=== PATIENT | male | born 1970 | race Caucasian/White ===

== ENCOUNTER → 2020-02-16 13:51 | Outpatient (CLI) | payer OTHER, SELFPAY ==
--- NOTE | 2020-02-16 13:56 | VDUE_ITS ---
Reason For Study: Dialysis access placement Right Arm Left Arm Right Cephalic Vein at the wrist measures Left Cephalic Vein at the wrist measures 0.37 x 0.41 cm. 0.24 x 0.29 cm. Right Cephalic Vein in the forearm measures Left Cephalic Vein in the forearm measures 0.38 x 0.44 cm. 0.38 x 0.49 cm. Rt Cephalic V branch wrist measures 0.19 x Left Cephalic Vein below antecub measures 0.27 cm 0.32 x 0.36 cm. Rt Cephalic V branch below AC measures 0.22 Left Cephalic V branch at mid forearm x 0.28 cm. measures 0.25 x 0.35 cm. Right Cephalic Vein below antecub measures Left Cephalic Vein above antecub measures 0.33 x 0.45 cm. 0.62 x 0.60 cm. Right Cephalic Vein above antecub measures Left Cephalic Vein at mid bicep measures 0.53 x 0.58 cm. 0.55 x 0.57 cm. Right Cephalic Vein mid bicep measures 0.50 Left Cephalic Vein at the shoulder measures x 0.51 cm. 0.56 x 0.60 cm. Right Cephalic Vein at the shoulder measures Basilic vein at origin measures 0.47 x 0.51 0.55 x 0.50 cm. cm. Right Basilic Vein at the origin measures Basilic vein at bicep measures 0.51 x 0.65 0.49 x 0.49 cm. cm. Right Basilic Vein mid bicep measures 0.41 x Basilic vein above antecub measures 0.55 x 0.45 cm. 0.60 cm. Right Basilic Vein above antecub measures Left Brachial Artery measures 0.45 x 0.40 cm 0.561 x 0.56 cm. with a velocity of 89.7 cm/s Rt Brachial Artery measures 0.50 x 0.50 cm Left Radial Artery measures 0.22 x 0.29 cm with a velocity of 76.0 cm/s with a velocity of 84.5 cm/s. Rt Radial Artery measures 0.22 x 0.26 cm with a velocity of 82.9 cm/s. Interpretation Summary Patent and compressible bilateral upper extremity cephalic and basilic veins with dimensions as noted. Normal diameter and flow bilateral radial and brachial arteries Ordering Physician: ANNA BEAN Referring Physician: Sandra Escobar Performed By: Dipika Braun RVT and Student ?
== END ==
PROVIDERS: PCP Nurse Practitioner Family
DX: Z01.818 Encounter for other preprocedural examination (principal); N18.5 Chronic kidney disease, stage 5
CPT/HCPCS: 93970; 93985

== ENCOUNTER 2020-03-23 05:54 | Day surgery (SDC) | payer OTHER, SELFPAY ==
[2020-03-08 08:36] VITALS: BMI 52.4
--- NOTE | 2020-03-16 13:20 | EKG12_ITS ---
Test Reason : PRE OP Blood Pressure : / mmHG Vent. Rate : 089 BPM Atrial Rate : 089 BPM P-R Int : 138 ms QRS Dur : 100 ms QT Int : 388 ms P-R-T Axes : 064 -13 067 degrees QTc Int : 472 ms Normal sinus rhythm Low voltage QRS [id number] Nonspecific ST abnormality Abnormal ECG Confirmed by ABY GONCALVES, LUZ MARINA ([id number]), legal editor ML WILEY ([id number]) on 03/22/2020 8:17:07 AM Referred By: Minh Avelar Confirmed By:LUZ MARINA BADILLO MD
[2020-03-16 15:28] LABS: Hematocrit 27.2 % (40-54); Hemoglobin 8.7 g/dL (13.0-16.5); Mean Corpuscular Hgb 27.4 pg (27.0-32.0); Mean Corpuscular Volume 85.8 fL (80-94); Mean Platelet Vol. 9.3 fl (6.2-12.0); Platelet Count 172 K/mm3 (150-450); RBC Distribution Width CV 16.2 % (11.6-14.6); RBC Distribution Width SD 50.8 fl (35.1-43.9); Red Blood Count 3.17 M/mm3 (4.6-6.2); White Blood Count 6.1 K/mm3 (4.4-11.0)
[2020-03-16 15:50] LABS: Anion Gap 9 (5-15); BUN 80 mg/dL (7-18); Calcium,Total 8.1 mg/dL (8.5-10.1); Chloride 109 mmol/L (98-107); Creatinine, Serum 5.01 mg/dL (0.70-1.30); EST Glomerular Filtration Rate 13 mL/min (>60); Est Glom Filt Rate - Afr Amer 16 mL/min (>60); Glucose 145 mg/dL (74-106); Potassium 4.1 mmol/L (3.5-5.1); Sodium Level 138 mmol/L (136-145)
[2020-03-23] VITALS (7 sets, daily range): BP systolic 126–164; BP diastolic 54–78; PULSE 63–74; RESP 16–20; TEMP 36.2–37.1; O2SAT 92–100; BMI 52.4
--- NOTE | 2020-03-23 06:23 | PCM.HP.BLA ---
Problem List (1) Chronic renal failure, stage 4 (severe) Status: Chronic History and Physical Date of Admission: 03/23/20 Intake Visit Reasons: Fistula Consult Allergies gemfibrozil Adverse Reaction (Mild, Verified 03/08/20 08:37) Diarrhea Medications carvedilol 25 mg tablet 25 mg PO BID 03/08/20 [History Confirmed 03/08/20] cyanocobalamin (vitamin B-12) 100 mcg tablet 100 mcg PO DAILY 03/08/20 [History Confirmed 03/08/20] darbepoetin aida in polysorbat 300 mcg/0.6 mL in polysorbate injection syringe 300 mcg SC Q2W 03/08/20 [History Confirmed 03/08/20] doxazosin 4 mg tablet 4 mg PO DAILY 03/08/20 [History Confirmed 03/08/20] ergocalciferol (vitamin D2) 50,000 unit tablet 50,000 unit PO QMONTH tab 03/08/20 [History] folic acid 1 mg tablet 1 mg PO DAILY 03/08/20 [History Confirmed 03/08/20] gabapentin 300 mg capsule 300 mg PO BID 03/08/20 [History Confirmed 03/08/20] hydroxyzine HCl 10 mg tablet 10 mg PO QHS 03/08/20 [History Confirmed 03/08/20] insulin aspart U-100 100 unit/mL (3 mL) subcutaneous pen 22 unit SC TID ml 03/08/20 [History Confirmed 03/08/20] sitagliptin 50 mg tablet 50 mg PO DAILY 03/08/20 [History Confirmed 03/08/20] sodium bicarbonate 650 mg tablet 650 mg PO TID-QID PRN 03/08/20 [History Confirmed 03/08/20] [facility] Medical History (Updated 03/08/20 @ 08:[address] Minh Avelar MD) Chronic renal failure, stage 4 (severe) (Chronic) Diabetes (Acute) Kidney failure (Acute) Status post amputation of toe of left foot (Acute) HTN (hypertension) (Chronic) Surgical History (Updated 03/08/20 @ 08:36 by Indira Call) S/P right heart catheterization (Acute) Status post amputation of toe of right foot (Acute) Status post hernia repair (Acute) Social History (Updated 03/08/20 @ 09:[address] Minh Avelar MD) Smoking Status: Current some day smoker alcohol intake: never HPI HPI HPI: SHASHANK GARCIA, is a 49 M who presents to the office today for surgical consultation regarding creation of an arteriovenous hemodialysis fistula. The patient is referred by the [facility] and a written copy my surgical consult recommendations will return to them. The patient states that he has been notably overweight his entire life. Claims at one point he was 447 pounds. He is type II diabetic and this been so for the last 10 days years. He has had progressive renal insufficiency. He states that he has had multiple staph infections. He currently has had amputations of toes of his left foot. He works as control equipment electrician. He currently states that his left foot is healed. He is in a protective boot. He does note that he gets dyspneic quite easily. As noted below on February 16, 2020 had bilateral upper extremity duplex vein mapping. He is mostly right arm dominant. Claims he had an injury to the left hand remotely and now that his left hand is really much less useful. He has minimal tailor apprentice strength. Lack of coordination. He denies any coolness. ASD with pulmonary HTN Morbid obesity, BMI 52.4 [facility] [address] [place] [address] Saphenous Vein Mapping, Bilat 02/16/20 1403 MR#: [id number] Name: SHASHANK GARCIA [facility] #:[id number] : 1970 49From: Minh Avelar MD Attending Dr: Becca BEANus: REG I Ordering Dr: Irene BEANte: 02/16/20 [facility] Reason For Study: Dialysis access placement Right Arm Left Arm Right Cephalic Vein at the wrist measures Left Cephalic Vein at the wrist measures 0.37 x 0.41 cm. 0.24 x 0.29 cm. Right Cephalic Vein in the forearm measures Left Cephalic Vein in the forearm measures 0.38 x 0.44 cm. 0.38 x 0.49 cm. Rt Cephalic V branch wrist measures 0.19 x Left Cephalic Vein below antecub measures 0.27 cm 0.32 x 0.36 cm. Rt Cephalic V branch below AC measures 0.22 Left Cephalic V branch at mid forearm x 0.28 cm. measures 0.25 x 0.35 cm. Right Cephalic Vein below antecub measures Left Cephalic Vein above antecub measures 0.33 x 0.45 cm. 0.62 x 0.60 cm. Right Cephalic Vein above antecub measures Left Cephalic Vein at mid bicep measures 0.53 x 0.58 cm. 0.55 x 0.57 cm. Right Cephalic Vein mid bicep measures 0.50 Left Cephalic Vein at the shoulder measures x 0.51 cm. 0.56 x 0.60 cm. Right Cephalic Vein at the shoulder measures Basilic vein at origin measures 0.47 x 0.51 0.55 x 0.50 cm. cm. Right Basilic Vein at the origin measures Basilic vein at bicep measures 0.51 x 0.65 0.49 x 0.49 cm. cm. Right Basilic Vein mid bicep measures 0.41 x Basilic vein above antecub measures 0.55 x 0.45 cm. 0.60 cm. Right Basilic Vein above antecub measures Left Brachial Artery measures 0.45 x 0.40 cm 0.561 x 0.56 cm. with a velocity of 89.7 cm/s Rt Brachial Artery measures 0.50 x 0.50 cm Left Radial Artery measures 0.22 x 0.29 cm with a velocity of 76.0 cm/s with a velocity of 84.5 cm/s. Rt Radial Artery measures 0.22 x 0.26 cm with a velocity of 82.9 cm/s. Interpretation Summary Patent and compressible bilateral upper extremity cephalic and basilic veins with dimensions as noted. Normal diameter and flow bilateral radial and brachial arteries Ordering Physician: TAVON BEAN Referring Physician: Sandra Escobar Performed By: Dipika Braun RVT and Student ? 02/16/20 1610 Date Minh Avelar MD HPI HPI HPI: SHASHANK GARCIA, is a 49 M who presents to the office today for Exam Const General: cooperative, comfortable, no acute distress Nutritional Appearance: obese morbidly obese Orientation: alert, awake, oriented x3 HENMT Head: normal to inspection Eyes General: appearance normal, both eyes and all related structures Neck Other: Significant soft tissue defect and scarring left posterior neck Resp Auscultation: clear to auscultation bilaterally Other: Poor respiratory excursion Cardio Rate: regular rate Rhythm: regular rhythm GI Other: Patient notably overweight, sitting in a scooter chair, I did not attempt to get him onto an exam table Skin Other: Erythema bilateral lower extremities with soft tissue swelling noted Neuro Cognition: normal cognition Extrem General: pedal edema Other: Left radial pulse is 2+. I inspected the left forearm cephalic vein it appeared to be patent compressible and of adequate diameter Psych Affect: normal affect Assessment & Plan Problems 1. Chronic renal failure, stage 4 (severe) N18.4 Plan 49-year-old gentleman with stage IV chronic renal sufficiency. He is cared for at the [facility]. He states that they want to initiate dialysis as soon as possible. Because of his history of multiple staph infections he is hesitant to allow any type of prosthetic device i.e. catheter. I propose for him a left forearm transposed cephalic vein radial artery arteriovenous fistula creation. He is aware of the technique, benefit, risk and alternatives. Because of his multiple staph infections I recommend that we obtain MRSA screening preoperatively. If that is positive then I would recommend vancomycin be administered preoperatively. He has had an opportunity to ask and have questions answered. He is aware that a will take 2 to 3 months likely to get a functioning fistula. We will schedule and proceed at his discretion and try to expedite his care. He is aware of COVID-19. He is aware that the [facility] still reporting a containable incidence. He is aware that this is outpatient procedure. Unfortunately if his renal failure progresses quickly then he will require dialysis catheters and as noted he has concerns that this will place him at increased infection risk. I appreciate the opportunity of assisting with his surgical care Copy: [facility], Dr Tavon Avelar M.D., F.A.C.S. Coding Level of Care Code 48359 Diagnoses Chronic renal failure, stage 4 (severe) N18.4 I have re-examined the patient. There are no clinical changes since date of exam. Procedure Criteria Procedure Type: Elective COVID Risk Discussion: The surgeon/proceduralist and patient have discussed in detail the risk of exposure to and/or potential harm posed by the COVID-19 virus with having a surgery/procedure at this time versus the risk of delaying the surgery/procedure. It is not possible to know either the risk of delaying the surgery or procedure or chance of getting an infection with perfect accuracy, but a joint decision was made between the patient and the surgeon/proceduralist to proceed at this time with the scheduled surgery/procedure as indicated on the consent form.
--- NOTE | 2020-03-23 06:24 | DCINST_ITS ---
Discharge Diet: Renal Diet Discharge Activity: May Not Drive - for 2-3 days or while taking narcotic pain medications., May Take a Tub Bath - in 5 days. Lifting Restrictions: 5 pounds Keep extremity elevated above heart level: - - Keep arm elevated above the heart level for 3 days. Additional Activity Instructions:: Exercise hand vigorously with a stress ball. Call your doctor if your incision/area has: Continuous Slow Oozing, Sudden Increased Bleeding - apply pressure and call your doctor., Increased Pain/ Swelling, Increased Redness, Foul Smelling Discharge Call your doctor if you observe: Fever of 101 or Higher Suture Line Care: Avoid Pulling/Pushing, Avoid Pinching/Bending Cleanse incision/area with: Keep Dressing Clean & Dry Additional Dressing/Incision Instructions:: You may remove the Baljeet wrap dressing in 2 days. Leave the Steri-Strips in place for an additional 1 week. You may shower starting on Thursday as long as the incision is clean and dry and without drainage Allergies/Adverse Reactions: Allergies gemfibrozil Adverse Reaction (Mild, Verified 03/16/20 10:11) Diarrhea Medications to take at Discharge carvedilol 25 mg tablet 25 mg PO BID 03/08/20 cyanocobalamin (vitamin B-12) 100 mcg tablet 100 mcg PO DAILY 03/08/20 darbepoetin aida in polysorbat 300 mcg/0.6 mL in polysorbate injection syringe 300 mcg SC Q2W 03/08/20 doxazosin 4 mg tablet 4 mg PO DAILY 03/08/20 ergocalciferol (vitamin D2) 50,000 unit tablet 50,000 unit PO QMONTH tab 03/08/20 folic acid 1 mg tablet 1 mg PO DAILY 03/08/20 gabapentin 300 mg capsule 300 mg PO BID PRN 03/08/20 insulin aspart U-100 100 unit/mL (3 mL) subcutaneous pen 12 unit SC BID ml 03/08/20 sitagliptin 50 mg tablet 50 mg PO DAILY 03/08/20 sodium bicarbonate 650 mg tablet 650 mg PO BID 03/08/20 Primary Care Physician: Sandra Escobar NP, [facility] [employer]-C [Primary Care Provider] - Test Results: Test results from this visit will be discussed in further detail at your follow- up appointment, if applicable. Please Follow Up With: Minh Avelar MD - [phone] When: Call to make an appointment for suture removal and follow up in 10 days
[2020-03-23] MEDS: Lactated Ringers 1,000 ML 100 ML IV (06:48)
[2020-03-23 07:01] LABS: Bedside Glucose 108 mg/dL (70-110)
[2020-03-23] MEDS: Heparin Injection (Vial) 5,000 UNIT/ML VIAL 5000 UNIT (07:30)
[2020-03-23] MEDS: Lidocaine 1% (30 ml sdv) 30 ML Vial (09:00)
[2020-03-23] MEDS: Bupivacaine Mpf 0.5% 30 ML VIAL (09:00)
--- NOTE | 2020-03-23 09:27 | PCM.OPRPT ---
Problem List (1) Chronic renal failure, stage 4 (severe) Status: Chronic Report of Operation Date of Procedure: 03/23/20 Pre-Operative Diagnosis: Stage IV chronic renal insufficiency Post-Operative Diagnosis: Same Surgery/Procedure Performed:: Transposition left forearm cephalic vein to radial artery arteriovenous hemodialysis fistula creation Description of Surgical Findings:: Timeout and informed consent was obtained. 49-year-old gentleman was taken to the operating placed on the table underwent general anesthesia. Ancef 2 g were given intravenously. The left upper extremity was sterilely prepped and draped. Throughout the procedure 1% lidocaine mixed 50-50 with 0.5% Marcaine was used as a local anesthetic. A total of 45 cc was used. Ultrasound was used to map the course of the cephalic vein. Local was instilled. A longitudinal incision was made up the left forearm. The cephalic vein was completely dissected free. Side branches were secured with 4-0 Vicryl ligatures and hemoclips were indicated. The bifurcation of the cephalic vein and basilic vein occurred distal to the antecubital space. I elected to keep both outflow tracts intact. Dissected down to the wrist. This was out of place at bifurcation at that would make a nice anastomosis. I then made a separate longitudinal incision directly over the radial artery sharp and blunt dissection was used to identify this. I then tediously dissected the radial artery free. Was rather severely calcific. I was able to get it mobilized. Side branches secured with hemoclips. And then the vein was ligated distally with 3-0 Vicryl. It was spatulated at a branch point. I then placed a tunneler medial to the harvest incision from the wrist to the antecubital area. I then carefully tunneled the ink marked vein to assure no twisting through the superficial tunnel. Patient then received 12,000 units of heparin weightbase. Peripheral vascular clamps were placed on the radial artery 11 blade was used to make an arteriotomy with extended with Hale scissors. The vein had been nicely spatulated. A end-to-side anastomosis was created with a running 7-0 Prolene. Prior to completion I used a 2.5 Pb dilator to assure good arterial inflow. I then completed the anastomosis without additional clamping. Several interrupted 7-0 Vicryl sutures were required for hemostasis. There was excellent flow in the fistula at the completion with good positional lie. No undue tension. The artery had been partially mobilized as well. The patient received 20 mg of protamine as reversal agent. The hand appeared to be warm and viable. The wounds were closed with interrupted subdermal 3-0 Vicryl. Skin edges approximated running septic or 4-0 Monocryl. Steri-Strips Telfa soft roll Baljeet wrap applied. Sponge and instrument and needle counts were reported to the surgeon to be correct. Specimens none. Drains none. Blood loss 50 cc Minh Avelar M.D., F.A.C.S. Anesthesiologist: Wally Valdez
[2020-03-23 10:45] LABS: Bedside Glucose 110 mg/dL (70-110)
== END 2020-03-23 13:20 | disposition home or self-care (01) ==
LOC: SDC 05:54 → AC 05:54
PROVIDERS: PCP Nurse Practitioner Family; Referring Provider Surgery; Visit Provider Surgery
PROC: (CPT 36821; principal; 2020-03-23 07:15)
DX: I12.9 Hypertensive chronic kidney disease with stage 1 through stage 4 chronic kidney disease, or unspecified chronic kidney disease (principal); N18.4 Chronic kidney disease, stage 4 (severe); E11.22 Type 2 diabetes mellitus with diabetic chronic kidney disease; I27.20 Pulmonary hypertension, unspecified; Q21.1 Atrial septal defect; G47.30 Sleep apnea, unspecified; F17.200 Nicotine dependence, unspecified, uncomplicated; E66.01 Morbid (severe) obesity due to excess calories; Z68.43 Body mass index [BMI] 50.0-59.9, adult; Z99.2 Dependence on renal dialysis; Z79.4 Long term (current) use of insulin; Z79.899 Other long term (current) drug therapy; Z20.828 Contact with and (suspected) exposure to other viral communicable diseases
CPT/HCPCS: 01844; 36821; 36415; 80048; 82962; 85027; 87081; 87426; 93005; C9803; J7120

== ENCOUNTER 2020-04-26 10:31 | Day surgery (SDC) | payer OTHER, SELFPAY ==
[2020-04-24 09:42] VITALS: BMI 53.2
[2020-04-25 10:38] VITALS: BMI 53.2
--- NOTE | 2020-04-26 10:40 | HP.PCM_ITS ---
Problem List (1) Problem with dialysis access Status: Acute Qualifiers: Encounter type: initial encounter Qualified Code(s): T82.898A - Other specified complication of vascular prosthetic devices, implants and grafts, initial encounter History and Physical Date of Admission: 04/26/20 Intake Visit Reasons: TWO WEEK F/U FISTULA Chief Complaint: Post op transposition A-V Fistula left forearm 03/23/20 Allergies gemfibrozil Adverse Reaction (Mild, Verified 04/24/20 09:28) Diarrhea Medications carvedilol 25 mg tablet 25 mg PO BID 03/08/20 [History Confirmed 04/24/20] cyanocobalamin (vitamin B-12) 100 mcg tablet 100 mcg PO DAILY 03/08/20 [History Confirmed 04/24/20] darbepoetin aida in polysorbat 300 mcg/0.6 mL in polysorbate injection syringe 300 mcg SC Q2W 03/08/20 [History Confirmed 04/24/20] doxazosin 4 mg tablet 4 mg PO DAILY 03/08/20 [History Confirmed 04/24/20] ergocalciferol (vitamin D2) 50,000 unit tablet 50,000 unit PO QMONTH tab [History Confirmed 04/24/20] folic acid 1 mg tablet 1 mg PO DAILY 03/08/20 [History Confirmed 04/24/20] gabapentin 300 mg capsule 300 mg PO BID PRN 03/08/20 [History Confirmed 04/24/20] insulin aspart U-100 100 unit/mL (3 mL) subcutaneous pen 12 unit SC BID ml 03/08/20 [History Confirmed 04/24/20] sitagliptin 50 mg tablet 50 mg PO DAILY 03/08/20 [History Confirmed 04/24/20] sodium bicarbonate 650 mg tablet 650 mg PO BID 03/08/20 [History Confirmed 04/24/20] [facility] Medical History Chronic renal failure, stage 4 (severe) (Chronic) Diabetes (Acute) Kidney failure (Acute) Status post amputation of toe of left foot (Acute) HTN (hypertension) (Chronic) Surgical History S/P right heart catheterization (Acute) Status post amputation of toe of right foot (Acute) Status post hernia repair (Acute) history transposition A-V Fistula left forearm (Acute ~03/23/20) Social History (Updated 04/24/20 @ 13:25 by Gisselle BAEZA, PALucianoC) Smoking Status: Current some day smoker alcohol intake: never HPI HPI HPI: SHASHANK GARCIA, is a 49 M who presents to the office today for HPI HPI Surgical H&P: Yes HPI: SHASHANK GARCIA, is a 49 M who presents to the office today for follow-up of left forearm AV fistula creation by Dr. Avelar on 03/23/20. Patient notes discomfort along the thumb up into the radial aspect of the arm. He notes this is not all of the time. He denies numbness/tingling. He does have limited range of motion of the left hand which was present prior to the fistula creation. Patient is not currently on dialysis, however he notes having more symptoms in regards to renal failure. His scrape gatherer has not stated he needs to go dialysis. Patient has very high anxiety and would only allow me to discuss swallow details about the procedure. He is not currently maintained on anticoagulation. Patient is scooter bound however he is able to transfer with assistance. ROS General General: Yes fatigue; no weight change, appetite, colon cancer, breast cancer or weakness HEENT HEENT: No difficulty swallowing, eye injury, eye surgery, swollen glands or hoarseness Endo Endocrine: Yes diabetes mellitus; no thyroid disease, thyroid cancer, Hair loss, heat intolerance or cold intolerance Skin Skin: No rash or changing moles Breast Breast: No left breast lump, right breast lump, nipple discharge, breast pain, abnormal mammogram, abnormal US or breast enlargement Musc Musculoskeletal: Yes gout; no back problems, arthritis, rheumatoid arthritis or joint pain Cardio Cardiovascular: Yes murmur, heart disease, atrial fibrillation, high blood pressure and heart attack; no pacemaker, heart stent, palpitations, shortness of breat with exertion or chest pain Psych Psychiatric: No depression, anxiety or hearing voices Resp Respiratory: Yes shortness of breath, Yes sleep apnea, No cough, No COPD, No asthma, No emphysema, No wheezing Gastro Gastrointestinal: No abdominal pain, No nausea or vomiting, Yes diarrhea, Yes constipation, No blood in stool, No acid reflux, No hemorrhoids, No ulcers, No gallbladder problem, No black,tarry stools William Hematologic: No blood thinners, No blood disorders, No bleeding, Yes anemia, No blood clots Neuro Neurologic: No system reviewed and no additional complaints, except as docu, No as per HPI, No abnormal walking, No abnormal hearing, No abnormal movements, No abnormal speech, No behavioral changes, No burning sensations, No confusion, No seizure-like activity, No unsteadiness, No dizziness, No localized weakness, No frequent falls, No headache(s), No lack of coordination, No loss of vision, No memory loss, Yes numbness, No other visual disturbances, No radiating pain, No restless legs, No sensory deficit, No fainting, Yes tingling, No tremor(s), No weakness, No other Exam Const General: cooperative, comfortable, no acute distress HENMT Head: normal to inspection Eyes General: appearance normal, both eyes and all related structures Neck Neck: normal visual inspection Neck mass: No Chest Breast Palpation: No nipple discharge Resp Effort & Inspection: normal respiratory effort Auscultation: clear to auscultation bilaterally Cardio Rate: regular rate Rhythm: regular rhythm Heart Sounds: murmur GI Inspection: normal to inspection, obesity Palpation: soft Skin General: no rashes or lesions noted Neuro General: no focal motor deficits, CN's II-XI intact bilaterally Extrem General: normal to inspection Other: Left forearm AV fistula- good pulse, diminished bruit and thrill throughout. Bruit is a whisper near the anastomotic incision and non-audible extending superiorly. Incisions have healed nicely. Psych Appearance: grossly normal Affect: normal affect Assessment & Plan Problems 1. Chronic renal failure, stage 4 (severe) N18.4 2. Problem with dialysis access, initial encounter T82.397P Plan Dr. Avelar will plan to perform a left forearm fistulogram with carbon dioxide. Procedure details, risks and benefits have been explained. Patient has had the opportunity to ask and have questions answered. Patient is not currently on dialysis, so Dr. Avelar will utilize carbon dioxide. Patient has very high anxiety. I was able to explain the procedure however he had to stop me several times due to me giving to much detail. Coding Level of Care Code Global Post Op Diagnoses Chronic renal failure, stage 4 (severe) N18.4 Problem with dialysis access, initial encounter T84.041T ??Encounter type: initial encounter I have re-examined the patient. There are no clinical changes since date of exam. Procedure Criteria Procedure Type: Elective COVID Risk Discussion: The surgeon/proceduralist and patient have discussed in detail the risk of exposure to and/or potential harm posed by the COVID-19 virus with having a surgery/procedure at this time versus the risk of delaying the surgery/procedure. It is not possible to know either the risk of delaying the surgery or procedure or chance of getting an infection with perfect accuracy, but a joint decision was made between the patient and the surgeon/proceduralist to proceed at this time with the scheduled surgery/procedure as indicated on the consent form.
[2020-04-26 10:48] LABS: Hematocrit 27.1 % (40-54); Hemoglobin 8.6 g/dL (13.0-16.5); Mean Corp Hgb Conc 31.7 g/dL (32-36); Mean Corpuscular Hgb 27.2 pg (27.0-32.0); Mean Corpuscular Volume 85.8 fL (80-94); Mean Platelet Vol. 8.8 fl (6.2-12.0); Platelet Count 160 K/mm3 (150-450); RBC Distribution Width CV 15.5 % (11.6-14.6); RBC Distribution Width SD 49.2 fl (35.1-43.9); Red Blood Count 3.16 M/mm3 (4.6-6.2); White Blood Count 4.8 K/mm3 (4.4-11.0)
[2020-04-26 10:59] LABS: Anion Gap 7 (5-15); BUN 88 mg/dL (7-18); BUN/Creat Ratio 19.2 RATIO (10-20); Chloride 112 mmol/L (98-107); Creatinine, Serum 4.59 mg/dL (0.70-1.30); EST Glomerular Filtration Rate 14 mL/min (>60); Est Glom Filt Rate - Afr Amer 17 mL/min (>60); Glucose 147 mg/dL (74-106); Potassium 4.7 mmol/L (3.5-5.1); Sodium Level 139 mmol/L (136-145)
--- NOTE | 2020-04-26 12:52 | OP.PCM_ITS ---
Problem List (1) Problem with dialysis access Status: Acute Qualifiers: Encounter type: initial encounter Qualified Code(s): T82.898A - Other specified complication of vascular prosthetic devices, implants and grafts, initial encounter Report of Operation Date of Procedure: 04/26/20 Pre-Operative Diagnosis: Diminished flow transposed left forearm cephalic vein to radial artery arteriovenous hemodialysis fistula Post-Operative Diagnosis: Inability to cannulate radial artery at fistula anastomosis Surgery/Procedure Performed:: Left forearm carbon dioxide fistulogram with attempted crossing of the arterial anastomosis Description of Surgical Findings:: Timeout and informed consent was obtained. 55-year-old gentleman was taken to the special procedures lab placed upon the table. He is morbidly obese. He has trouble breathing lying supine. He received a half a milligram Versed is intravenous sedation. He received 4 mg of Zofran IV because of complaint of nausea. Pillows were placed beneath his legs to assist with comfort. Ultrasound was performed in the proximal left volar forearm. Under ultrasound guidance 2 different areas were accessed with a micropuncture needle. Could not get the wire to advance at the more proximal condition closer to the antecubital space so I advanced slightly more distally. 2% lidocaine was instilled micropuncture needle inserted retrograde with low micropuncture wire inserted 6 Sammarinese short sheath dilator was inserted. Then I tried using a 4 Sammarinese angled glide cath and an 03 5 inch Glidewire. I exchanged out to a 4 Sammarinese IM catheter. I additionally be used a police pilot 150 wire. No matter what maneuver I was not able to gain access into the radial artery at the anastomosis. Could not identify it. Carbon dioxide fistulogram of the forearm demonstrated adequate forearm vein and seemingly adequate flow to the antecubital space. I then performed ultrasound inspection of the anastomosis and it appears to be patent and there appears to be good flow not clear as to why could not get access. This point I aborted the procedure. We will follow the patient clinically. If he perhaps continues to fail to demonstrate maturation then I would consider antegrade access through the left antecubital brachial artery into the radial artery to try to investigate the fistula in that regard. The sheath dilator was removed U suture 4-0 nylon was placed. He tolerated the procedure adequately. There were no apparent complications. Findings include a limited forearm fistulogram demonstrating a patent transposed cephalic vein to radial artery although the arterial anastomosis could not be visualized and could not be cannulated. Minh Avelar M.D., F.A.C.S. Type of Anesthesia:: IV Sedation, Local
== END 2020-04-26 14:00 | disposition home or self-care (01) ==
PROVIDERS: PCP Nurse Practitioner Family; Referring Provider Surgery; Visit Provider Surgery
DX: T82.898A Other specified complication of vascular prosthetic devices, implants and grafts, initial encounter (principal); I12.9 Hypertensive chronic kidney disease with stage 1 through stage 4 chronic kidney disease, or unspecified chronic kidney disease; E11.22 Type 2 diabetes mellitus with diabetic chronic kidney disease; N18.4 Chronic kidney disease, stage 4 (severe); E66.01 Morbid (severe) obesity due to excess calories; Z79.4 Long term (current) use of insulin; Z79.899 Other long term (current) drug therapy
CPT/HCPCS: 36415; 36901; 76937; 80048; 85027; 99152; 99153; Q9967; C1769; J2405

== ENCOUNTER → 2020-05-08 12:55 | Outpatient (CLI) | payer OTHER, SELFPAY ==
[2020-04-25 10:38] VITALS: BMI 53.2
--- NOTE | 2020-05-08 12:56 | AVDS_ITS ---
Reason For Study: Complication with vascular device LEFT Inflow, Radial artery, 345.1/162.2 cm/sec. Inflow, Radial artery, 342.7/ml/min. Prox anastomosis, 387.3/786.3 cm/sec. Prox anastomosis, 320.5 ml/min. Prox graft, 534.1/257.3 cm/sec. Prox graft, 1768 ml/min. Mid graft, 123.4/53.4 cm/sec. Mid graft, 374.4 ml/min. Distal graft, 74.1/37.8 cm/sec. Distal graft, 364.9 ml/min. Outflow, CephalicV, 97.4/40.4 cm/sec. Outflow, CephalicV, 392.6 ml/min. Interpretation Summary Cephalic vein to radial artery anastomosis 0.27 cm in diameter. Volume flow located throughout the left radial artery is noted to be in the mid 300s. An isolated proximal fistula volume flow elevated at 1768 mm/min but in the mid fistula it is 374 mm/min and in the distal fistula 364 mm/min [place] fistula flow would be 600 mm/min Ordering Physician: Minh Avelar Referring Physician: Sandra Escobar Performed By: Dipika Braun RVT
== END ==
PROVIDERS: PCP Nurse Practitioner Family; Referring Provider Surgery; Visit Provider Surgery
DX: T82.898A Other specified complication of vascular prosthetic devices, implants and grafts, initial encounter (principal)
CPT/HCPCS: 93990

== ENCOUNTER 2020-05-22 09:08 | Day surgery (SDC) | payer OTHER, SELFPAY ==
[2020-05-15 13:01] VITALS: BMI 53.2
[2020-05-15 15:09] LABS: Absolute Lymphocyte Count 0.94 X10^3/uL (0.83-4.51); Basophil# 0.02 X10^3/uL; Basophil% 0.4 % (0-1); Eosinophils% 1.8 % (0-5); Hematocrit 27.4 % (40-54); Hemoglobin 8.6 g/dL (13.0-16.5); Lymphocyte # 0.94 X10^3/ul (4.0); Lymphocyte % 17.3 % (19-41); Mean Corp Hgb Conc 31.4 g/dL (32-36); Mean Corpuscular Hgb 26.5 pg (27.0-32.0); Mean Corpuscular Volume 84.3 fL (80-94); Mean Platelet Vol. 9.1 fl (6.2-12.0); Monocyte% 5.5 % (0-10); NRBC Flagged by Analyzer 0 % (0-5); Neutrophil # 4.03 X10^3/uL (2.7-7.7); Neutrophil % 74.4 % (47-70); Platelet Count 173 K/mm3 (150-450); RBC Distribution Width CV 15.2 % (11.6-14.6); Red Blood Count 3.25 M/mm3 (4.6-6.2); White Blood Count 5.4 K/mm3 (4.4-11.0)
[2020-05-15 15:55] LABS: Anion Gap 7 (5-15); BUN 103 mg/dL (7-18); BUN/Creat Ratio 21.4 RATIO (10-20); Calcium,Total 8.5 mg/dL (8.5-10.1); Chloride 107 mmol/L (98-107); Creatinine, Serum 4.82 mg/dL (0.70-1.30); EST Glomerular Filtration Rate 14 mL/min (>60); Est Glom Filt Rate - Afr Amer 16 mL/min (>60); Glucose 135 mg/dL (74-106); Potassium 4.8 mmol/L (3.5-5.1); Sodium Level 136 mmol/L (136-145)
[2020-05-21 08:46] VITALS: BMI 53.2
--- NOTE | 2020-05-22 09:18 | PCM.HP.BLA ---
Problem List (1) Problem with dialysis access Status: Acute Qualifiers: Encounter type: subsequent encounter Qualified Code(s): T82.898D - Other specified complication of vascular prosthetic devices, implants and grafts, subsequent encounter History and Physical Date of Admission: 05/22/20 Intake Visit Reasons: discuss US/ surgery Chief Complaint: recheck fistula Brainer Required: No Is patient in pain?: No Allergies gemfibrozil Adverse Reaction (Mild, Verified 05/15/20 12:38) Diarrhea Medications carvedilol 25 mg tablet 25 mg PO BID 03/08/20 [History Confirmed 05/15/20] cyanocobalamin (vitamin B-12) 100 mcg tablet 100 mcg PO DAILY 03/08/20 [History Confirmed 05/15/20] darbepoetin aida in polysorbat 300 mcg/0.6 mL in polysorbate injection syringe 300 mcg SC Q2W 03/08/20 [History Confirmed 05/15/20] doxazosin 4 mg tablet 4 mg PO DAILY 03/08/20 [History Confirmed 05/15/20] ergocalciferol (vitamin D2) 50,000 unit tablet 50,000 unit PO QMONTH tab 03/08/20 [History Confirmed 05/15/20] folic acid 1 mg tablet 1 mg PO DAILY 03/08/20 [History Confirmed 05/15/20] gabapentin 300 mg capsule 300 mg PO BID PRN 03/08/20 [History Confirmed 05/15/20] insulin aspart U-100 100 unit/mL (3 mL) subcutaneous pen 12 unit SC BID ml 03/08/20 [History Confirmed 05/15/20] sitagliptin 50 mg tablet 50 mg PO DAILY 03/08/20 [History Confirmed 05/15/20] sodium bicarbonate 650 mg tablet 650 mg PO BID 03/08/20 [History Confirmed 05/15/20] [facility] Medical History Chronic renal failure, stage 4 (severe) (Chronic) Diabetes (Acute) Kidney failure (Acute) Status post amputation of toe of left foot (Acute) HTN (hypertension) (Chronic) Surgical History S/P right heart catheterization (Acute) Status post amputation of toe of right foot (Acute) Status post hernia repair (Acute) history transposition A-V Fistula left forearm (Acute ~03/23/20) Social History (Updated 05/15/20 @ 15:[address] Minh Avelar MD) Smoking Status: Current some day smoker alcohol intake: never HPI HPI HPI: SHASHANK GARCIA, is a 49 M who presents to the office today for surgical follow-up of transposed left forearm cephalic vein radial artery AV fistula. Did not appear to be maturing well. It was created for him on 03/23/2020. Then on 04/26/2020 and attempted a fistulogram. I accessed the venous portion of the fistula but could not gain access to the radial artery. Subsequently obtain duplex imaging of his fistula as noted below. The fistula volume flow is less than ideal. Report of Operation Date of Procedure: 04/26/20 Pre-Operative Diagnosis: Diminished flow transposed left forearm cephalic vein to radial artery arteriovenous hemodialysis fistula Post-Operative Diagnosis: Inability to cannulate radial artery at fistula anastomosis Surgery/Procedure Performed:: Left forearm carbon dioxide fistulogram with attempted crossing of the arterial anastomosis [facility] [address] [place] [address] AV Fistula/Dialysis Graft Scan 05/08/20 1303 MR#: [id number] Name: SHASHANK GARCIA [facility] #:[id number] : 1970 49From: Minh Avelar MD Attending Dr: Dr. Minh Avelar, MDStatus: REG CLI Ordering Dr: Minh Avelar MDDate: 05/08/20 [facility]: Reason For Study: Complication with vascular device LEFT Inflow, Radial artery, 345.1/162.2 cm/sec. Inflow, Radial artery, 342.7/ml/min. Prox anastomosis, 387.3/786.3 cm/sec. Prox anastomosis, 320.5 ml/min. Prox graft, 534.1/257.3 cm/sec. Prox graft, 1768 ml/min. Mid graft, 123.4/53.4 cm/sec. Mid graft, 374.4 ml/min. Distal graft, 74.1/37.8 cm/sec. Distal graft, 364.9 ml/min. Outflow, CephalicV, 97.4/40.4 cm/sec. Outflow, CephalicV, 392.6 ml/min. Interpretation Summary Cephalic vein to radial artery anastomosis 0.27 cm in diameter. Volume flow located throughout the left radial artery is noted to be in the mid 300s. An isolated proximal fistula volume flow elevated at 1768 mm/min but in the mid fistula it is 374 mm/min and in the distal fistula 364 mm/min [place] fistula flow would be 600 mm/min Ordering Physician: Minh Avelar Referring Physician: Sandra Escobar Performed By: Dipika Braun RVT 05/08/20 1442 Date Minh Avelar MD HPI HPI HPI: SHASHANK GARCIA, is a 49 M who presents to the office today for ROS General General: Yes fatigue; no weight change, appetite, colon cancer, breast cancer or weakness HEENT HEENT: No difficulty swallowing, eye injury, eye surgery, swollen glands or hoarseness Endo Endocrine: Yes diabetes mellitus; no thyroid disease, thyroid cancer, Hair loss, heat intolerance or cold intolerance Skin Skin: No rash or changing moles Breast Breast: No left breast lump, right breast lump, nipple discharge, breast pain, abnormal mammogram, abnormal US or breast enlargement Musc Musculoskeletal: Yes gout; no back problems, arthritis, rheumatoid arthritis or joint pain Cardio Cardiovascular: Yes murmur, heart disease, atrial fibrillation, high blood pressure and heart attack; no pacemaker, heart stent, palpitations, shortness of breat with exertion or chest pain Psych Psychiatric: No depression, anxiety or hearing voices Resp Respiratory: Yes shortness of breath, Yes sleep apnea, No cough, No COPD, No asthma, No emphysema, No wheezing Gastro Gastrointestinal: No abdominal pain, No nausea or vomiting, Yes diarrhea, Yes constipation, No blood in stool, No acid reflux, No hemorrhoids, No ulcers, No gallbladder problem, No black,tarry stools William Hematologic: No blood thinners, No blood disorders, No bleeding, Yes anemia, No blood clots Neuro Neurologic: No system reviewed and no additional complaints, except as docu, No as per HPI, No abnormal walking, No abnormal hearing, No abnormal movements, No abnormal speech, No behavioral changes, No burning sensations, No confusion, No seizure-like activity, No unsteadiness, No dizziness, No localized weakness, No frequent falls, No headache(s), No lack of coordination, No loss of vision, No memory loss, Yes numbness, No other visual disturbances, No radiating pain, No restless legs, No sensory deficit, No fainting, Yes tingling, No tremor(s), No weakness, No other Exam Const General: cooperative, comfortable, no acute distress Nutritional Appearance: obese morbidly obese [facility] Head: normal to inspection Chest Breast Palpation: No nipple discharge Resp Effort & Inspection: normal respiratory effort Auscultation: clear to auscultation bilaterally Cardio Rate: regular rate Rhythm: regular rhythm Heart Sounds: murmur GI Other: Overweight Extrem Other: Left forearm well-healed transposition incision. There is a weak pulse thrill and bruit within the transposed cephalic vein to radial artery AV fistula. On ultrasound inspection the anastomosis appears to be patent. There does appear to be diffuse atherosclerotic disease involving the radial artery Psych Affect: normal affect Assessment & Plan Problems 1. Problem with dialysis access, initial encounter T82.288A Plan After again careful inspection I am proposing for the patient a repeat attempt at a left forearm fistulogram. The patient is not yet on hemodialysis and I would likely need to utilize carbon dioxide. I would anticipate likely needing to access the left brachial artery antegrade and then gain selective access to the radial artery. Because of the patient's body habitus after inspecting him with ultrasound today I feel that that would be very challenging. The anastomosis is just slightly more proximally located on the radial artery. With this in mind I think there would be an opportunity to access his radial artery distal to the anastomosis closer to the wrist. Hopefully would be able to gain retrograde access to the left radial artery place this sheath and then be able to interact with the radial artery and anastomosis if indicated. I anticipate that the current problem likely is secondary to radial artery inflow disease. He may require a diffuse angioplasty of the artery. I additionally had an opportunity to discuss his condition with his OR top lift scourer Dr.Kirshna Sher. The patient's renal function is progressively declining and he will need to have intervention soon. If I cannot get a functioning fistula in the near term then the patient likely would need to have tunneled dialysis catheters placed. [facility] completion of my procedure. Minh Avelar M.D., F.A.Rae. Orders Orders: Basic Metabolic Profile (BMP) Today N18.4, T82.898A CBC W/Diff, Automated Today N18.4, T82.898A Coding Level of Care Code Global Post Op Diagnoses Problem with dialysis access, initial encounter T82.898A I have re-examined the patient. There are no clinical changes since date of exam. Procedure Criteria Procedure Type: Elective COVID Risk Discussion: The surgeon/proceduralist and patient have discussed in detail the risk of exposure to and/or potential harm posed by the COVID-19 virus with having a surgery/procedure at this time versus the risk of delaying the surgery/procedure. It is not possible to know either the risk of delaying the surgery or procedure or chance of getting an infection with perfect accuracy, but a joint decision was made between the patient and the surgeon/proceduralist to proceed at this time with the scheduled surgery/procedure as indicated on the consent form.
--- NOTE | 2020-05-22 11:06 | OP.PCM_ITS ---
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 Proximal venous fistula venous stenosis Surgery/Procedure Performed:: Left upper extremity radial artery arteriogram with 3 x 120 mm Pinky cross angioplasty. Left upper extremity fistulogram with 5 x 2 Powerflex angioplasty and 6 x 2 ConQuest angioplasty Description of Surgical Findings:: Timeout and informed consent was obtained. 49-year-old gentleman was taken to the special procedures lab placed upon the table. Throughout the procedure he received 50 mcg of fentanyl and 2 mg of Versed is intravenous sedation. He also received Zofran 4 mg IV. The left upper extremity was sterilely prepped and draped. Ultrasound was used to identify the radial artery distal to the cephalic vein radial artery anastomosis. Under ultrasound guidance 2% lidocaine was instilled as a local anesthetic. A total of 2 cc was used. Then under ultrasound guidance a singlewall needle was advanced into the radial artery distal to the anastomosis Glidewire was inserted and then a 6 R[place] sheath dilator was inserted. The patient received 5000 units of heparin. I was able to get a dispatcher ship pilot 150 wire proximally into the radial artery and then placed a 014 quick cross catheter. Through the quick cross catheter I injected Isovue contrast 1 cc diluted with 1 cc of saline. An arterial study of the radial artery of the forearm was obtained. This demonstrated mild diffuse disease of the radial artery with possibly some clamped distortion of the radial artery just proximal to the anastomosis. So a 3 x 820 mm Pinky cross balloon was inserted and balloon angioplasty of the entire length of the radial artery performed. Completion view was obtained through the next cross catheter was reinserted showing dramatic improvement. I was then able to get a Glidewire into the cephalic vein from the radial access. I initially treated the anastomosis with a 5 x 2 Powerflex balloon up to 15 corrie of pressure for 3 minutes. That improved the anastomotic area but there is another area about 3 cm more distal. I treated that with a 5 x 2 Powerflex balloon but got inadequate results of this 60% stenosis. I then placed a 6 x 2 ConQuest balloon and performed balloon angioplasty of that venous portion of the fistula within 4 cm of the anastomosis. That was insufflated to 30 corrie of pressure and held for 3 minutes. Completion view down through the sheath demonstrated now resolution of all areas of concern with a rapid flow through the fistula. Total contrast used was only 6 cc of Isovue contrast. The sheath was removed and a radial artery puncture site wrist air insufflated compression device was used to obtain hemostasis. There was a good pulse thrill and bruit within the fistula at the completion without apparent complication. Images demonstrate mild diffuse disease throughout the length of the left radial artery with what appears to possibly be some clamp injury of the radial artery just proximal to the anastomosis. This resolved with angioplasty. There was mild stenosis of the arterial anastomosis but most pertinently 60% stenosis within 3 to 4 cm of the anastomosis within the vein. Subsequent to the angioplasty of the radial artery and of the vein there appears to be resolution of all areas of concern. Impression successfully treated left forearm transposed cephalic vein to radial artery AV fistula now with apparent wide open flow. Minh Avelar M.D., F.A.C.S. Type of Anesthesia:: IV Sedation, Local
== END 2020-05-22 13:20 | disposition home or self-care (01) ==
PROVIDERS: Physician Assistant; PCP Nurse Practitioner Family; Referring Provider Surgery; Visit Provider Surgery
DX: T82.858A Stenosis of other vascular prosthetic devices, implants and grafts, initial encounter (principal); I12.9 Hypertensive chronic kidney disease with stage 1 through stage 4 chronic kidney disease, or unspecified chronic kidney disease; E11.22 Type 2 diabetes mellitus with diabetic chronic kidney disease; N18.4 Chronic kidney disease, stage 4 (severe); F17.200 Nicotine dependence, unspecified, uncomplicated; Z79.4 Long term (current) use of insulin
CPT/HCPCS: 36415; 36902; 76937; 80048; 85025; 99152; 99153; C1725; C1769; C1887; C1894; J2405

== ENCOUNTER → 2020-08-03 | Outpatient (CLI) | payer OTHER, SELFPAY ==
[2020-05-21 08:46] VITALS: BMI 53.2
[2020-08-03 08:24] LABS: Hemoglobin 7.2 g/dL (13.0-16.5)
== END | disposition home or self-care (01) ==
LOC: LABSPEC 08:08
PROVIDERS: PCP Nurse Practitioner Family; Visit Provider Internal Medicine Nephrology
DX: D64.9 Anemia, unspecified (principal)
CPT/HCPCS: 85018